=== PATIENT | male | born 1975 | race Caucasian/White ===

== ENCOUNTER 2016-12-27 10:42 | Emergency (ER) | payer BC ==
[2016-12-27 10:53] VITALS: BP 136/84; PULSE 92; TEMP 98.3; BMI 33.3
[2016-12-27] MEDS ORDERED: diphenhydrAMINE HCL 25 MG CAPSULE (FP) PO ONE ×2 (11:43→12:07)
[2016-12-27] MEDS ORDERED: IBUPROFEN 400 MG TABLET (FP) PO ONE ×2 (11:43→12:07)
--- NOTE | 2016-12-27 11:50 | PDOC ---
History of Present Illness - General Chief Complaint: Injury Stated Complaint: PAIN ON LEFT LEG AND ALLERGIES Time Seen by Provider: 12/27/16 11:27 History Source: Patient Exam Limitations: No Limitations - History of Present Illness Initial Comments: 12/27/16 11:44 41 yr male with c/o pain to right thigh after fall yesterday at work. Pt also c/ o itching around the eyes for 2 days with redness and swelling. no diff breathing no sneezing or nasal congestion. Occurred: reports: yesterday Past History - Past Medical History Allergies/Adverse Reactions: Allergies Allergy/AdvReac Type Severity Reaction Status Date / Time No Known Allergies Allergy Verified 12/27/16 10:50 Home Medications: Ambulatory Orders Prednisone [Deltasone -] 20 mg PO DAILY #7 tablet 12/27/16 - Psycho/Social/Smoking Cessation Hx Anxiety: No Suicidal Ideation: No Smoking History: Current every day smoker Have you smoked in the past 12 months: Yes Number of Cigarettes Smoked Daily: 10 Information on smoking cessation initiated: No Hx Alcohol Use: No Drug/Substance Use Hx: No Substance Use Type: None Trauma Specific PMHX - Complaint Specific PMHX Arthritis: No Back Injury: No Neck Injury: No Hx Sacro Iliac Joint Dysfunction: No Review of Systems - Review of Systems Able to Perform ROS?: Yes Is the patient limited [place] proficient: No Constitutional: No: Symptoms Reported HEENTM: No: Symptoms Reported Respiratory: No: Symptoms reported Cardiac (ROS): No: Symptoms Reported ABD/GI: No: Symptoms Reported : No: Symptoms Reported Musculoskeletal: Yes: See HPI Integumentary: Yes: Symptoms Reported *Physical Exam - Vital Signs Last Vital Signs Temp Pulse Resp BP Pulse Ox 98.3 F 92 H 18 136/84 100 12/27/16 10:50 12/27/16 10:50 12/27/16 10:50 12/27/16 10:50 12/27/16 10:50 - Physical Exam General Appearance: Yes: Nourished, Appropriately Dressed HEENT: positive: EOMI, DARIAN, TMs Normal, Pharynx Normal, Other (swelling periorbital bilaterally with mild erythema, non tender, no eye discharge) Respiratory/Chest: positive: Lungs Clear, Normal Breath Sounds. negative: Wheezing Cardiovascular: positive: Regular Rhythm, Regular Rate Extremity: positive: Normal Capillary Refill, Normal Range of Motion, Other ( right inner thigh with bruising noted, FROM tender to touch lateral thigh) Integumentary: positive: Normal Color, Dry, Warm, Rash (periorbital ) Neurologic: positive: Fully Oriented, Alert, Normal Mood/Affect, Normal Response , Motor Strength 5/5 ED Treatment Course - RADIOLOGY Radiology Studies Ordered: Category Date Time Status FEMUR-RIGHT [RAD] Stat Radiology 12/27/16 11:44 Ordered Medical Decision Making - Medical Decision Making 12/27/16 11:48 cc: fell yesterday injured right thigh pt also with itchy eyes and the skin around his eyes to face with red rash,. itchy no fever, no cough no trouble breathing will xray to r/o fracture will give benadryl for rash and itching no evidecne of conjunctivitis most likely allergic *DC/Admit/Observation/Transfer Diagnosis at time of Disposition: Traumatic ecchymosis of lower leg Qualifiers: Encounter type: initial encounter Laterality: right Qualified Code(s): S80.11XA - Contusion of right lower leg, initial encounter Allergic reaction Qualifiers: Encounter type: initial encounter Qualified Code(s): T78.40XA - Allergy, unspecified, initial encounter - Discharge Dispostion Disposition: HOME Condition at time of disposition: Good - Prescriptions Prescriptions: Prednisone [Deltasone -] 20 mg PO DAILY #7 tablet - Referrals Referrals: Aman Chaney MD [Staff Physician] - Walter Ortega MD [Staff Physician] - - Patient Instructions Additional Instructions: cool water to wash face avoid any hot water take prednisone as directed for 7 days to help with swelling and itching around your face you can also take a non drowsy antihistamine such as Zyrtec or Claritin daily in the moring before work , this can help with allergy symptoms take motrin for the contusion to the leg, this will help with pain and swelling apply ice every 2hrs for 20 minutes to the area of bruising follow with the orthopedist if no improvement or worsening pain in your leg 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
== END 2016-12-27 12:43 | disposition home or self-care (01) ==
LOC: JERFT 10:42
DX: S80.11XA Contusion of right lower leg, initial encounter (principal); T78.40XA Allergy, unspecified, initial encounter; W18.30XA Fall on same level, unspecified, initial encounter; Y93.89 Activity, other specified; Y92.9 Unspecified place or not applicable; Y99.0 Civilian activity done for income or pay; F17.210 Nicotine dependence, cigarettes, uncomplicated
CPT/HCPCS: 73552-TC-RT; 99281-25